=== PATIENT | female | born 1995 | race Caucasian/White ===

== ENCOUNTER 2018-10-30 16:47 | Emergency (ER) | payer SELFPAY ==
--- NOTE | 2018-10-30 17:01 | Emergency Department Report ---
Chief Complaint: Nausea/Vomiting/Diarrhea Stated Complaint: 7WKS /VOMITTING Time Seen by Provider: 10/30/18 16:58 - HPI History of Present Illness: pt is currently 7 weeks says she has N/V that began a week ago no vaginal discharge no urinary sx /P:1/A:0 states she had similar sx with her first no vaginal bleeding LNMP September 08, 2018 states she had confirmed at a clinic no drinker no drug use no smoking MSE screening note: Focused history and physical exam performed. Due to findings the following was ordered: UA, CBC, BMP ED Disposition for MSE Condition: Stable
[2018-10-30 17:24] LABS: Basophils % (Auto) 0.3 % (0.0-1.8); Eosinophils # (Auto) 0.1 K/mm3 (0.0-0.4); Eosinophils % (Auto) 0.9 % (0.0-4.3); Hematocrit 39.5 % (30.3-42.9); Hemoglobin 13.7 gm/dl (10.1-14.3); Lymphocytes # (Auto) 2.2 K/mm3 (1.2-5.4); Lymphocytes % (Auto) 19.1 % (13.4-35.0); Mean Corpuscular HGB Conc 35 % (30-34); Mean Corpuscular Volume 87 fl (79-97); Monocytes # (Auto) 0.8 K/mm3 (0.0-0.8); Monocytes % (Auto) 6.8 % (0.0-7.3); Platelet Count 256 K/mm3 (140-440); Red Blood Count 4.55 M/mm3 (3.65-5.03); Red Cell Distribution Width 12.3 % (13.2-15.2)
[2018-10-30 18:29] LABS: BUN/Creatinine Ratio 18; Blood Urea Nitrogen 9 mg/dL (7-17); Calcium 9.6 mg/dL (8.4-10.2); Hemolysis Index 109
[2018-10-30 18:43] LABS: Bacteria,Urine 1+ /HPF (Negative); Bilirubin,Urine NEG (Negative); Blood,Urine NEG (Negative); Color,Urine Yellow (Yellow); Mucus,Urine 3+ /HPF; Protein,Urine <15 mg/dL mg/dL (Negative)
[2018-10-30] MEDS ORDERED: ZOFRAN IV ONE ×2 (18:57→21:13)
[2018-10-30] MEDS ORDERED: NACL 0.9% 1000 ML 1,000 ML IV ONE ×2 (18:57→21:13)
[2018-10-30] MEDS ORDERED: KEFLEX PO ONE (18:57)
--- NOTE | 2018-10-30 18:59 | Emergency Department Report ---
ED N/V/D HPI - General Chief complaint: Nausea/Vomiting/Diarrhea Stated complaint: 7WKS /VOMITTING Time Seen by Provider: 10/30/18 16:58 Source: patient, family Mode of arrival: Ambulatory Limitations: No Limitations - History of Present Illness Initial comments: This is a 22-year-old female here with her significant other reports that she is having hyperemesis and she is 7 weeks . She is taking vitamins but has not signed up to see [facility] as yet. She reports nausea which is usual with her . Denies any fever or chills. Denies any abdominal pain or back pain. Denies any urinary burning, frequency or urgency. Denies vaginal bleeding or discharge. Denies any medical problem. Pain is 0/10. MD complaint: nausea, vomiting Onset/Timin -: days(s) Description of Vomiting: food contents Description of Diarrhea: other (no diarrhea) Associated Abdominal Pain: No Pain Scale: 0 Context: other (patient is at 7 weeks) Associated Symptoms: nausea/vomiting. denies: myalgias, chest pain, cough, diaphoresis, fever/chills, headaches, loss of appetite, malaise, rash, dysuria, shortness of breath, syncope, weakness - Related Data Previous Rx's Medication Instructions Recorded Last Taken Type Ondansetron [Zofran Odt] 4 mg PO Q8HR PRN #12 tab.rapdis 10/30/18 Unknown Rx cephALEXin [Keflex] 500 mg PO Q12HR 7 Days #14 cap 10/30/18 Unknown Rx Allergies Allergy/AdvReac Type Severity Reaction Status Date / Time No Known Allergies Allergy Unverified 10/30/18 16:50 ED Review of Systems ROS: Stated complaint: 7WKS /VOMITTING Other details as noted in HPI Constitutional: denies: chills, fever ENT: denies: throat pain, congestion Respiratory: denies: cough, shortness of breath, wheezing (when he she will order) Cardiovascular: denies: chest pain, palpitations, edema, syncope Gastrointestinal: nausea. denies: abdominal pain Genitourinary: denies: urgency, dysuria, frequency, hematuria, discharge, dyspareunia Musculoskeletal: denies: back pain, joint swelling, arthralgia, myalgia Skin: denies: rash Neurological: denies: headache, abnormal gait, vertigo ED Past Medical Hx - Past Medical History Previous Medical History?: No - Surgical History Past Surgical History?: No - Family History Family history: hypertension - Social History Smoking Status: Never Smoker Substance Use Type: None - Medications Home Medications: Home Medications Medication Instructions Recorded Confirmed Last Taken Type Ondansetron [Zofran Odt] 4 mg PO Q8HR PRN #12 tab.rapdis 10/30/18 Unknown Rx cephALEXin [Keflex] 500 mg PO Q12HR 7 Days #14 cap 10/30/18 Unknown Rx ED Physical Exam - General Limitations: No Limitations General appearance: alert, in no apparent distress - Head Head exam: Present: atraumatic - Eye Eye exam: Present: normal appearance, PERRL, EOMI Pupils: Present: normal accommodation - ENT ENT exam: Present: normal exam, normal orophraynx, mucous membranes moist - Neck Neck exam: Present: normal inspection, full ROM. Absent: tenderness, lymphadenopathy - Respiratory Respiratory exam: Present: normal lung sounds bilaterally. Absent: respiratory distress, chest wall tenderness - Cardiovascular Cardiovascular Exam: Present: regular rate, normal rhythm, tachycardia, normal heart sounds - GI/Abdominal GI/Abdominal exam: Present: soft, normal bowel sounds. Absent: distended, tenderness, guarding, rebound, rigid, organomegaly, mass, bruit - Extremities Exam Extremities exam: Present: normal inspection, full ROM, normal capillary refill, other (No cce. + 2 pulses in all extremities, no neurovascular compromise). Absent: tenderness, pedal edema, joint swelling, calf tenderness - Back Exam Back exam: Present: normal inspection, full ROM, other (ambulates without any d ifficulties). Absent: tenderness, CVA tenderness (R), CVA tenderness (L), muscle spasm, paraspinal tenderness, vertebral tenderness, rash noted - Neurological Exam Neurological exam: Present: alert, oriented X3, normal gait - Psychiatric Psychiatric exam: Present: normal affect, normal mood - Skin Skin exam: Present: warm, dry, intact, normal color. Absent: rash ED Course Vital Signs 10/30/18 16:58 Temperature 98.1 F Pulse Rate 108 H Respiratory 18 Rate Blood Pressure 107/78 O2 Sat by Pulse 99 Oximetry Vital Signs 10/30/18 10/30/18 16:58 22:15 Temperature 98.1 F Pulse Rate 108 H 78 Respiratory 18 Rate Blood Pressure 107/78 O2 Sat by Pulse 99 Oximetry - Reevaluation(s) Reevaluation #1: 10/30/18 21:14 Patient given 1 L of normal saline, Zofran 4 mg IV and started on Keflex to treat urinary tract infection. Upon reevaluation ,she said that she is feeling better without any nausea but she has some acid which she usually has. Patient able to tolerate oral liquids and noted drinking soda in room. She denies any abdominal or back pain. ED Medical Decision Making - Lab Data Result diagrams: 10/30/18 17:07 10/30/18 17:07 Lab Results 10/30/18 10/30/18 10/30/18 Range/Units 17: 17:07 17:35 WBC 11.8 H (4.5-11.0) K/mm3 RBC 4.55 (3.65-5.03) M/mm3 Hgb 13.7 (10.1-14.3) gm/dl Hct 39.5 (30.3-42.9) % MCV 87 (79-97) fl MCH 30 (28-32) pg MCHC 35 H (30-34) % RDW 12.3 L (13.2-15.2) % Plt Count 256 (140-440) K/mm3 Lymph % (Auto) 19.1 (13.4-35.0) % [place] % (Auto) 6.8 (0.0-7.3) % Eos % (Auto) 0.9 (0.0-4.3) % Baso % (Auto) 0.3 (0.0-1.8) % Lymph # 2.2 (1.2-5.4) K/mm3 [place] # 0.8 (0.0-0.8) K/mm3 Eos # 0.1 (0.0-0.4) K/mm3 Baso # 0.0 (0.0-0.1) K/mm3 Seg Neutrophils % 72.9 H (40.0-70.0) % Seg Neutrophils # 8.6 H (1.8-7.7) K/mm3 Sodium 138 (137-145) mmol/L Potassium 4.0 (3.6-5.0) mmol/L Chloride 101.7 (98-107) mmol/L Carbon Dioxide 23 (22-30) mmol/L Anion Gap 17 mmol/L BUN 9 (7-17) mg/dL Creatinine 0.5 L (0.7-1.2) mg/dL Estimated GFR > 60 ml/min BUN/Creatinine Ratio 18 % Glucose 94 (65-100) mg/dL Calcium 9.6 (8.4-10.2) mg/dL Urine Color Yellow (Yellow) Urine Turbidity Cloudy (Clear) Urine pH 5.0 (5.0-7.0) Ur Specific [place] 1.024 (1.003-1.030) Urine Protein <15 mg/dl (Negative) mg/dL Urine Glucose (UA) Neg (Negative) mg/dL Urine Ketones 20 (Negative) mg/dL Urine Blood Neg (Negative) Urine Nitrite Neg (Negative) Urine Bilirubin Neg (Negative) Urine Urobilinogen 4.0 (<2.0) mg/dL Ur Leukocyte Esterase Lg (Negative) Urine WBC (Auto) 21.0 H (0.0-6.0) /HPF Urine RBC (Auto) 7.0 (0.0-6.0) /HPF U Epithel Cells (Auto) 27.0 H (0-13.0) /HPF Urine Bacteria (Auto) 1+ (Negative) /HPF Urine Mucus 3+ /HPF - Medical Decision Making This is a 22-year-old female here reports that she is having in nausea with vomiting over the last couple days. She reports that this is on and off. She is not having any vaginal bleeding, abdominal or back pain or urinary burning frequency or urgency. She is here to be evaluated Labs: CBC and CMP stable except mild elevation in white count with mild shift into the left and and urinalysis positive for urinary tract infection and also positive ketone.. Patient treated with 1 L of normal saline IV, Zofran 4 mg IV and she was giving Keflex 500 mg by mouth to start treatment for urinary tract infection. Up and reevaluation, she is feeling a lot better. Assessment/plan 1Acute cystitis-year and has some contamination but she has a urinary tract infection so unable to send for culture. Started on Keflex and will send home on Keflex to treat UTI. CBC mildly elevated with minimal shift into the left could be from vomiting or from urinary tract infection. Her urinalysis shows ketones of 20 which reflects mild dehydration 2: Nausea and vomiting in -better and Zofran and will send home on Zofran. Patient received 1 L of normal saline and she is able to tolerate oral liquids and was seen drinking in facility in room without any problems. I told her that she needs to drink water or Gatorade and not to drink soda as this could make acid in her stomach worse. Patient remained stable throughout ED course. I explained diagnosis, medication and treatment plan along with laboratory results. They voiced understanding. She is much better without any nausea at present. She is not having any pain. I discussed her that she needs to make an appointment [facility] which I will refer her to call tomorrow to schedule patient appointment for care. She is already started vitamin. Discharged home with her significant other with prescription for Zofran and Keflex. - Differential Diagnosis pyelonephritis, gastroenteritis, , urinary tract infection Critical care attestation.: If time is entered above; I have spent that time in minutes in the direct care of this critically ill patient, excluding procedure time. ED Disposition Clinical Impression: Mild dehydration, UTI (urinary tract infection) in in first trimester, Nausea and vomiting during Disposition: DC-01 TO HOME OR SELFCARE Is pt being admited?: No Does the pt Need Aspirin: No Condition: Stable Instructions: Acute Nausea and Vomiting (ED), Morning Sickness (ED), Dehydration (ED), Urinary Tract Infection in Women (ED) Additional Instructions: Please call [facility] office that I recommended due to the scheduled appointment for care. Continue to take vitamin but ensure you take this with food as it can cause nausea Please refrain from drinking soda as this has a lot of acid and he can cause stomach upset Take Keflex for urinary tract infection Take Zofran for nausea and vomiting U were mildly dehydrated today and will need to increase fluid intake to 2-3 L daily If your condition worsens, please return to the emergency room. Prescriptions: cephALEXin [Keflex] 500 mg PO Q12HR 7 Days #14 cap Ondansetron [Zofran Odt] 4 mg PO Q8HR PRN #12 tab.rapdis PRN Reason: Nausea And Vomiting Referrals: [facility] MD TIERRA [Primary Care Provider] - 10/31/18 DEBBIE SANDOVAL MD [Staff Physician] - 3-5 Days Forms: Work/School Release Form(ED), Accompanied Note
[2018-10-30 22:34] VITALS: BP 104/74
== END 2018-10-30 22:31 | disposition home or self-care (01) ==
LOC: ED 16:47
DX: O23.41 Unspecified infection of urinary tract in pregnancy, first trimester (principal); Z3A.01 Less than 8 weeks gestation of pregnancy; E86.0 Dehydration
CPT/HCPCS: 36415; 80048; 81001; 85025; 96361; 96374; 99283; J2405; J7030

== ENCOUNTER 2018-11-15 15:24 | Emergency (ER) | payer OTHER ==
--- NOTE | 2018-11-15 15:33 | Emergency Department Report ---
Chief Complaint: Nausea/Vomiting/Diarrhea Stated Complaint: NAUSEA/VOMITING/DIZZY Time Seen by Provider: 11/15/18 15:31 - HPI History of Present Illness: This is a 22 y.o. F. that presents to the ER with nausea and vomiting. Patient reports she is 10-12 weeks . She is not followed by [facility]. LMP 09/05/18 Patient states she was here a 2 weeks ago with similar symptoms and the medication prescribed is not working. - Exam Vital Signs: Vital Signs 11/15/18 15:32 Temperature 99.3 F Pulse Rate 126 H Respiratory 16 Rate Blood Pressure 108/80 O2 Sat by Pulse 98 Oximetry MSE screening note: Focused history and physical exam performed. Due to findings the following was ordered: This initial assessment/diagnostic orders/clinical plan/treatment(s) is/are subject to change based on patient's health status, clinical progression and re- assessment by fellow clinical providers in the ED. Further treatment and workup at subsequent clinical providers discretion. Patient/guardians urged not to elope from the ED as their condition may be serious if not clinically assessed and managed. Initial orders include: 1- Patient sent to [facility] for further evaluation and treatment 2- Labs ED Disposition for MSE Condition: Stable
[2018-11-15 16:10] LABS: Bacteria,Urine 1+ /HPF (Negative); Bilirubin,Urine NEG (Negative); Blood,Urine NEG (Negative); Color,Urine Amber (Yellow); Mucus,Urine 3+ /HPF
[2018-11-15 16:22] LABS: Hematocrit 40.8 % (30.3-42.9); Hemoglobin 13.7 gm/dl (10.1-14.3); Mean Corpuscular HGB Conc 34 % (30-34); Mean Corpuscular Volume 88 fl (79-97); Platelet Count 225 K/mm3 (140-440); Red Blood Count 4.62 M/mm3 (3.65-5.03); Red Cell Distribution Width 12.3 % (13.2-15.2)
[2018-11-15 16:44] LABS: BUN/Creatinine Ratio 18; Blood Urea Nitrogen 7 mg/dL (7-17); Calcium 9.3 mg/dL (8.4-10.2); Hemolysis Index 88
[2018-11-15] MEDS ORDERED: NACL 0.9% 1000 ML 1,000 ML IV ONE (16:45)
--- NOTE | 2018-11-15 17:59 | Emergency Department Report ---
ED HPI - General Chief complaint: Nausea/Vomiting/Diarrhea Stated complaint: NAUSEA/VOMITING/DIZZY Time Seen by Provider: 11/15/18 15:31 Source: patient Mode of arrival: Ambulatory Limitations: No Limitations - History of Present Illness Initial comments: Patient is a 22-year-old female who comes to the ER complaining of nausea and vomiting associated with her . She denies any vaginal bleeding. She is not having pain. Patient's temperature on arrival was 99.3. She has no CVA tenderness. No vaginal discharge. Patient has not seen an [facility] RN because of her Medicaid. 2 para 1. Patient is ambulatory and nontoxic on exam. -: Gradual, days(s) Consistency: intermittent Improves with: none Worsens with: none Associated symptoms: nausea/vomiting, headache. denies: vaginal bleeding, vaginal discharge, abdominal pain, dysuria, vision changes, malaise, dysparuenia, rash, seizure, shortness of breath, syncope, weakness Vaginal bleeding: none :: Yes OB History - Current : no complications OB History - Previous Pregnancies: no complications Pre-angélica care: none - Related Data : 2 Para: 1 Previous Rx's Medication Instructions Recorded Last Taken Type Amoxicillin [Trimox CAP] 500 mg PO BID #14 capsule 11/15/18 Unknown Rx Ondansetron [Zofran Odt] 4 mg PO Q8HR PRN #10 tab.rapdis 11/15/18 Unknown Rx Allergies Allergy/AdvReac Type Severity Reaction Status Date / Time No Known Allergies Allergy Unverified 10/30/18 16:50 ED Review of Systems ROS: Stated complaint: NAUSEA/VOMITING/DIZZY Other details as noted in HPI Comment: All other systems reviewed and negative ED Past Medical Hx - Past Medical History Previous Medical History?: No - Surgical History Past Surgical History?: No - Family History Family history: no significant - Social History Smoking Status: Never Smoker Substance Use Type: None - Medications Home Medications: Home Medications Medication Instructions Recorded Confirmed Last Taken Type Amoxicillin [Trimox CAP] 500 mg PO BID #14 capsule 11/15/18 Unknown Rx Ondansetron [Zofran Odt] 4 mg PO Q8HR PRN #10 tab.rapdis 11/15/18 Unknown Rx ED Physical Exam - General Limitations: No Limitations General appearance: alert - Eye Eye exam: Present: normal appearance - ENT ENT exam: Present: mucous membranes moist - Neck Neck exam: Present: normal inspection - Respiratory Respiratory exam: Present: normal lung sounds bilaterally - Cardiovascular Cardiovascular Exam: Present: regular rate - GI/Abdominal GI/Abdominal exam: Present: soft, normal bowel sounds. Absent: tenderness - Rectal Rectal exam: Present: deferred - Extremities Exam Extremities exam: Present: normal inspection, full ROM - Back Exam Back exam: Present: normal inspection, full ROM - Neurological Exam Neurological exam: Present: alert, oriented X3 - Psychiatric Psychiatric exam: Present: normal affect, normal mood - Skin Skin exam: Present: warm, dry ED Course Vital Signs 11/15/18 11/15/18 15:32 19:30 Temperature 99.3 F 98.3 F Pulse Rate 126 H 106 H Respiratory 16 16 Rate Blood Pressure 108/80 Blood Pressure 105/74 [Left] O2 Sat by Pulse 98 98 Oximetry ED Medical Decision Making - Lab Data Result diagrams: 11/15/18 16:02 11/15/18 16:02 - Medical Decision Making Vital Signs 11/15/18 15:32 Temperature 99.3 F Pulse Rate 126 H Respiratory 16 Rate Blood Pressure 108/80 O2 Sat by Pulse 98 Oximetry Lab Results 11/15/18 11/15/18 11/15/18 Range/Units 15:47 16:02 16:02 WBC 11.6 H (4.5-11.0) K/mm3 RBC 4.62 (3.65-5.03) M/mm3 Hgb 13.7 (10.1-14.3) gm/dl Hct 40.8 (30.3-42.9) % MCV 88 (79-97) fl MCH 30 (28-32) pg MCHC 34 (30-34) % RDW 12.3 L (13.2-15.2) % Plt Count 225 (140-440) K/mm3 Sodium 137 (137-145) mmol/L Potassium 4.0 (3.6-5.0) mmol/L Chloride 99.0 (98-107) mmol/L Carbon Dioxide 22 (22-30) mmol/L Anion Gap 20 mmol/L BUN 7 (7-17) mg/dL Creatinine 0.4 L (0.7-1.2) mg/dL Estimated GFR > 60 ml/min BUN/Creatinine Ratio 18 % Glucose 114 H (65-100) mg/dL Calcium 9.3 (8.4-10.2) mg/dL Urine Color [place] (Yellow) Urine Turbidity Slightly-cloudy (Clear) Urine pH 6.0 (5.0-7.0) Ur Specific [place] 1.029 (1.003-1.030) Urine Protein 30 mg/dl (Negative) mg/dL Urine Glucose (UA) Neg (Negative) mg/dL Urine Ketones 80 (Negative) mg/dL Urine Blood Neg (Negative) Urine Nitrite Neg (Negative) Urine Bilirubin Neg (Negative) Urine Urobilinogen 4.0 (<2.0) mg/dL Ur Leukocyte Esterase Lg (Negative) Urine WBC (Auto) 22.0 H (0.0-6.0) /HPF Urine RBC (Auto) 7.0 (0.0-6.0) /HPF U Epithel Cells (Auto) 6.0 (0-13.0) /HPF Urine Bacteria (Auto) 1+ (Negative) /HPF Urine Mucus 3+ /HPF n/v of lmp 3-18 has not seen obgyn due to medicaid IV with fluids zofran medicated for UTI taking po on dc will follow up with obgyn Critical care attestation.: If time is entered above; I have spent that time in minutes in the direct care of this critically ill patient, excluding procedure time. ED Disposition Clinical Impression: , UTI (urinary tract infection) Disposition: DC-01 TO HOME OR SELFCARE Is pt being admited?: No Does the pt Need Aspirin: No Condition: Stable Instructions: Hyperemesis Gravidarum (ED) Additional Instructions: DIET TOLERATED MEDS ORDERED TODAY IN ER FOLLOW INSTRUCTIONS ON THE BOTTLE FOLLOW UP PCP WITHIN 48 HOURS TO ENSURE YOU ARE GETTING BETTER ACTIVITY TOLERATED MOTRIN OR TYLENOL FOR PAIN OR FEVER RETURN TO THE ER FOR WORSENING SYMPTOMS NOT RELIEVED BY YOUR MEDICATIONS. Prescriptions: Amoxicillin [Trimox CAP] 500 mg PO BID #14 capsule Ondansetron [Zofran Odt] 4 mg PO Q8HR PRN #10 tab.rapdis PRN Reason: Vomiting Referrals: [facility] MD TIERRA [Primary Care Provider] - 3-5 Days DEBBIE SANDOVAL MD [Staff Physician] - 3-5 Days Time of Disposition: 18:49
[2018-11-15] MEDS ORDERED: ZOFRAN IV ONE (18:49)
[2018-11-15] MEDS ORDERED: TYLENOL PO ONE (18:50)
[2018-11-15] MEDS ORDERED: ROCEPHIN/NS 1 GM/50 ML 1 GM/50 ML BAG IV ONE (18:51)
[2018-11-15] MEDS ORDERED: ZOFRAN ODT PO ONE (19:27)
[2018-11-15] MEDS ORDERED: ZOFRAN ODT ONE (19:28)
[2018-11-15 19:31] VITALS: BP 105/74
== END 2018-11-15 20:05 | disposition home or self-care (01) ==
LOC: ED 15:24
DX: O16.1 Unspecified maternal hypertension, first trimester (principal); O21.9 Vomiting of pregnancy, unspecified; Z3A.10 10 weeks gestation of pregnancy
CPT/HCPCS: 36415; 80048; 81001; 85027; 96361; 96365; 96375; 99283; J0696; J2405; J7030; Q0162

== ENCOUNTER 2020-05-14 18:40 | Emergency (ER) | payer MEDICAID ==
[2020-05-14 18:54] VITALS: BP 128/87
--- NOTE | 2020-05-14 19:37 | Cat Scan Report ---
CT MAXILLOFACIAL WITHOUT CONTRAST INDICATION / CLINICAL INFORMATION: nasal pain and left eye pain after injury. TECHNIQUE: All CT scans at this location are performed using CT dose reduction for ALARA by means of automated e xposure control. COMPARISON: None available. FINDINGS: FACIAL BONES: There is slightly displace and age related fracture involving the left at nasal bone at . Additionally, there is mild adjacent soft tissue edema which extends along the left medial canthus at. Otherwise, the facial bones, including the orbital escalante, sinuses and zygomatic arches appear int act. PARANASAL SINUSES: There is mild mucosal thickening along the inferior right maxillary sinus at. Ther e is minimal mucosal thickening within the ethmoid air cells. The nasal septum is essentially midline . ORBITS: The optic globes demonstrate appropriate size and configuration. No significant post septal i nflammatory changes are identified. VISUALIZED INTRACRANIAL STRUCTURES: No significant abnormality. ADDITIONAL FINDINGS: There are multiple lymph nodes involving visualized upper neck which are nonspec ific though likely reactive in this patient. IMPRESSION: 1. There is a slightly displaced and angulated fracture involving the left nasal bone with mild adj acent edema. Signer Name: Bony Cabrera MD Signed: 05/14/2020 7:33 PM Workstation Name: [id number]
[2020-05-14] MEDS ORDERED: HYDROcodone/ACETAMINOPHEN 5-325 MG TAB PO ONE (19:40)
--- NOTE | 2020-05-14 20:16 | XRay Report ---
NASAL BONE 3 VIEWS INDICATION / CLINICAL INFORMATION: nasal trauma. COMPARISON: None available. FINDINGS: Mildly displaced fracture left nasal bone. No additional acute findings. Signer Name: Alfredo Calhoun MD Signed: 05/14/2020 8:11 PM Workstation Name: [id number]
--- NOTE | 2020-05-14 20:34 | Emergency Department Report ---
ED General Adult HPI - General Chief complaint: Head Injury Stated complaint: NOSE INJURY Time Seen by Provider: 05/14/20 18:56 Source: patient Mode of arrival: Ambulatory Limitations: Language Barrier - History of Present Illness Initial comments: Pt is a 24 y/o female involved in basketball accident , was elbowed by other place to bridge of nose. there was no loc, no nose bleed, pt drove self to home , now with headache, nose pain and facial swelling , no obvious deformity, no loss of vision , no headache, no dizziness, no light headedness, no neck pain swelling or deformity. pain is 3/10 aching , swelling, no sob , no difficulty breathing, no n/v. Severity scale (0 -10): 3 - Related Data Previous Rx's Medication Instructions Recorded Last Taken Type Amoxicillin [Trimox CAP] 500 mg PO BID #14 capsule 11/15/18 Unknown Rx Ondansetron [Zofran Odt] 4 mg PO Q8HR PRN #10 tab.rapdis 11/15/18 Unknown Rx Amoxicillin/Potassium Clav 1 each PO BID 10 Days #20 tablet 05/14/20 Unknown Rx [Augmentin 875-125 Tablet] HYDROcodone/APAP 5-325 [[place] 1 each PO Q6HR PRN #12 tablet 05/14/20 Unknown Rx 5-325 mg TAB] Oxymetazoline 0.05% [Vicks Sinex] 2 spray NS BID 3 Days #1 bottle 05/14/20 Unknown Rx Allergies Allergy/AdvReac Type Severity Reaction Status Date / Time No Known Allergies Allergy Unverified 10/30/18 16:50 ED Review of Systems ROS: Stated complaint: NOSE INJURY Other details as noted in HPI Constitutional: denies: chills, fever Eyes: denies: eye pain, eye discharge, vision change ENT: other (facial swelling ). denies: ear pain, throat pain, epistaxis, congestion Respiratory: denies: cough, shortness of breath, wheezing Cardiovascular: denies: chest pain, palpitations Endocrine: no symptoms reported Gastrointestinal: denies: abdominal pain, nausea, diarrhea Genitourinary: denies: urgency, dysuria, discharge Musculoskeletal: denies: back pain, joint swelling, arthralgia Skin: denies: rash, lesions Neurological: denies: headache, weakness, paresthesias Psychiatric: denies: anxiety, depression Hematological/Lymphatic: denies: easy bleeding, easy bruising ED Past Medical Hx - Past Medical History Previous Medical History?: No - Surgical History Past Surgical History?: No - Social History Smoking Status: Never Smoker Substance Use Type: None - Medications Home Medications: Home Medications Medication Instructions Recorded Confirmed Last Taken Type Amoxicillin [Trimox CAP] 500 mg PO BID #14 capsule 11/15/18 Unknown Rx Ondansetron [Zofran Odt] 4 mg PO Q8HR PRN #10 tab.rapdis 11/15/18 Unknown Rx Amoxicillin/Potassium Clav 1 each PO BID 10 Days #20 tablet 05/14/20 Unknown Rx [Augmentin 875-125 Tablet] HYDROcodone/APAP 5-325 [[place] 1 each PO Q6HR PRN #12 tablet 05/14/20 Unknown Rx 5-325 mg TAB] Oxymetazoline 0.05% [Vicks Sinex] 2 spray NS BID 3 Days #1 bottle 05/14/20 Unknown Rx ED Physical Exam - General Limitations: Language Barrier General appearance: alert, in no apparent distress - Head Head exam: Present: atraumatic, normocephalic - Expanded Head Exam Expanded Head exam: Present: abrasion, contusion. Absent: laceration, racoon eyes, pandya's sign, general tenderness, CSF rhinorrhea, CSF otorrhea 1 - swelling ecchymosis, no deformity, no crepitus, no expistaxis , nares patent, mild sinus pain to palpation , - Eye Eye exam: Present: normal appearance, EOMI Pupils: Present: normal accommodation - ENT ENT exam: Present: mucous membranes moist, TM's normal bilaterally, normal external ear exam - Expanded ENT Exam Expanded Ear exam: Present: normal external inspection Mouth exam: Absent: trismus Teeth exam: Present: normal inspection Throat exam: Positive: normal inspection, other (uvula midline no swelling exudate or lesions). Negative: tonsillar erythema, tonsillomegaly, tonsillar exudate, R peritonsillar mass, L peritonsillar mass - Neck Neck exam: Present: normal inspection, full ROM. Absent: tenderness - Expanded Neck Exam Expanded Neck exam: Absent: tenderness (no posterior vertebral point tenderness, no stepoff , no crepitus, no deformity, rom intact and unrestricted to all burks.), midline deformity, anterior neck swelling, tracheal deviation - Respiratory Respiratory exam: Present: normal lung sounds bilaterally. Absent: respiratory distress, wheezes, stridor, chest wall tenderness - Cardiovascular Cardiovascular Exam: Present: regular rate, normal rhythm, normal heart sounds. Absent: systolic murmur, diastolic murmur, rubs, gallop - GI/Abdominal GI/Abdominal exam: Present: soft, normal bowel sounds. Absent: distended, tenderness, guarding, rebound, bruit, hernia - Rectal Rectal exam: Present: deferred - Extremities Exam Extremities exam: Present: normal inspection, full ROM, normal capillary refill. Absent: tenderness - Back Exam Back exam: Present: normal inspection, full ROM. Absent: tenderness, CVA tenderness (R), CVA tenderness (L), vertebral tenderness, rash noted - Neurological Exam Neurological exam: Present: alert, oriented X3, CN II-XII intact, normal gait. Absent: motor sensory deficit, reflexes normal - Expanded Neurological Exam Expanded Patient oriented to: Present: person, place, time Speech: Present: fluid speech Cranial nerves: EOM's Intact: Normal, Gag Reflex: Normal, Tongue Deviation: Normal, Nystagmus: Normal, Facial Sensation: Normal Motor strength exam: RUE: 5, LUE: 5, RLE: 5, LLE: 5 Best Eye Response ([place]): (4) open spontaneously Best Motor Response ([place]): (6) obeys commands Best Verbal Response ([place]): (5) oriented [place] Total: 15 - Psychiatric Psychiatric exam: Present: normal affect, normal mood - Skin Skin exam: Present: warm, dry, intact, normal color. Absent: rash ED Course Vital Signs 05/14/20 18:46 Temperature 98.1 F Pulse Rate 97 H Respiratory 16 Rate Blood Pressure 128/87 O2 Sat by Pulse 100 Oximetry ED Medical Decision Making - Radiology Data Radiology results: report reviewed, image reviewed Findings Reporting MD: Alfredo Calhoun Dictation Time: May 14, 2020 19:11 Director Of District Office: Not available Foreman/Project Manager Date: NASAL BONE 3 VIEWS INDICATION / CLINICAL INFORMATION: nasal trauma. COMPARISON: None available. FINDINGS: Mildly displaced fracture left nasal bone. No additional acute findings. Signer Name: Alfredo Calhoun MD Signed: 05/14/2020 7:11 PM Workstation Name: [id number] Findings Reporting MD: Bony Cabrera Dictation Time: May 14, 2020 18:33 Director Of District Office: Not available Foreman/Project Manager Date: CT MAXILLOFACIAL WITHOUT CONTRAST INDICATION / CLINICAL INFORMATION: nasal pain and left eye pain after injury. TECHNIQUE: All CT scans at this location are performed using CT dose reduction for ALARA by means of automated exposure control. COMPARISON: None available. FINDINGS: FACIAL BONES: There is slightly displace and age related fracture involving the left at nasal bone at. Additionally, there is mild adjacent soft tissue edema which extends along the left medial canthus at. Otherwise, the facial bones, including the orbital escalante, sinuses and zygomatic arches appear intact. PARANASAL SINUSES: There is mild mucosal thickening along the inferior right maxillary sinus at. There is minimal mucosal thickening within the ethmoid air cells. The nasal septum is essentially midline. ORBITS: The optic globes demonstrate appropriate size and configuration. No significant post septal inflammatory changes are identified. VISUALIZED INTRACRANIAL STRUCTURES: No significant abnormality. ADDITIONAL FINDINGS: There are multiple lymph nodes involving visualized upper neck which are nonspecific though likely reactive in this patient. IMPRESSION: 1. There is a slightly displaced and angulated fracture involving the left nasal bone with mild adjacent edema. Signer Name: Bony Cabrera MD Signed: 05/14/2020 6:33 PM Workstation Name: [id number] - Medical Decision Making ct : mild dipslaced nasal bone fracture, no periorbital fracture, air way is patent, no neuro deficits, no neck pain, plan: rx, abx, afrin, follow ENT in 2- 3 days, Critical care attestation.: If time is entered above; I have spent that time in minutes in the direct care of this critically ill patient, excluding procedure time. ED Disposition Clinical Impression: Nasal bone fracture Qualifiers: Encounter type: initial encounter Fracture type: closed Qualified Code(s): S02.2XXA - Fracture of nasal bones, initial encounter for closed fracture Disposition: - TO HOME OR SELFCARE Is pt being admited?: No Does the pt Need Aspirin: No Condition: Stable Instructions: Nasal Fracture, [id number] Prescriptions: Amoxicillin/Potassium Clav [Augmentin 875-125 Tablet] 1 each PO BID 10 Days #20 tablet HYDROcodone/APAP 5-325 [[place] 5-325 mg TAB] 1 each PO Q6HR PRN #12 tablet PRN Reason: Pain Oxymetazoline 0.05% [Vicks Sinex] 2 spray NS BID 3 Days #1 bottle Referrals: CHARLIE RYAN MD [Staff Physician] - 3-5 Days Forms: Work/School Release Form(ED) Print Language: IVORIAN
== END 2020-05-14 20:45 | disposition home or self-care (01) ==
LOC: ED 18:40
DX: S02.2XXA Fracture of nasal bones, initial encounter for closed fracture (principal); Z79.899 Other long term (current) drug therapy; X58.XXXA Exposure to other specified factors, initial encounter; Y93.67 Activity, basketball; Y92.89 Other specified places as the place of occurrence of the external cause; Y99.8 Other external cause status
CPT/HCPCS: 70160; 70486

== ENCOUNTER 2021-12-24 17:40 | Emergency (ER) | payer MEDICAID ==
[2021-12-25 05:23] VITALS: BP 135/91
--- NOTE | 2021-12-25 05:58 | Emergency Department Report ---
ED General Adult HPI - General Chief complaint: Wound/Laceration Stated complaint: CUT ON HAND Time Seen by Provider: 12/25/21 05:13 Source: patient Mode of arrival: Ambulatory Limitations: No Limitations - History of Present Illness Initial comments: Patient 26-year-old female who presents for laceration to right posterior hand at base of pinky finger. Patient states he accidentally cut it while washing dishes last night. Bleeding was controlled by direct pressure self applied at home. There is no nerve muscle or tendon damage range of motion remains intact there is no deformity. Tetanus is up-to-date. Patient denies other complaint incident happened approximately 9 hours ago - Related Data Previous Rx's Medication Instructions Recorded Last Taken Type Amoxicillin [Trimox CAP] 500 mg PO BID #14 capsule 11/15/18 Unknown Rx Ondansetron [Zofran Odt] 4 mg PO Q8HR PRN #10 tab.rapdis 11/15/18 Unknown Rx Amoxicillin/Potassium Clav 1 each PO BID 10 Days #20 tablet 05/14/20 Unknown Rx [Augmentin 875-125 Tablet] HYDROcodone/APAP 5-325 [[place] 1 each PO Q6HR PRN #12 tablet 05/14/20 Unknown Rx 5-325 mg TAB] Oxymetazoline 0.05% [Vicks Sinex] 2 spray NS BID 3 Days #1 bottle 05/14/20 Unknown Rx cephALEXin [Keflex] 500 mg PO Q8HR 7 Days #21 cap 12/25/21 Unknown Rx traMADoL [Ultram] 50 mg PO Q6HR PRN #12 tablet 12/25/21 Unknown Rx Allergies Allergy/AdvReac Type Severity Reaction Status Date / Time No Known Allergies Allergy Unverified 10/30/18 16:50 ED Review of Systems ROS: Stated complaint: CUT ON HAND Other details as noted in HPI Constitutional: denies: chills, fever Eyes: denies: eye pain, eye discharge, vision change ENT: denies: ear pain, throat pain Respiratory: denies: cough, shortness of breath, wheezing Cardiovascular: denies: chest pain, palpitations Endocrine: no symptoms reported Gastrointestinal: denies: abdominal pain, nausea, diarrhea Genitourinary: denies: urgency, dysuria, discharge Musculoskeletal: denies: back pain, joint swelling, arthralgia Skin: other (Laceration right posterior hand) Neurological: denies: headache, weakness, paresthesias Psychiatric: denies: anxiety, depression Hematological/Lymphatic: denies: easy bleeding, easy bruising ED Past Medical Hx - Past Medical History Previous Medical History?: No - Surgical History Past Surgical History?: No - Social History Smoking Status: Never Smoker Substance Use Type: None - Medications Home Medications: Home Medications Medication Instructions Recorded Confirmed Last Taken Type Amoxicillin [Trimox CAP] 500 mg PO BID #14 capsule 11/15/18 Unknown Rx Ondansetron [Zofran Odt] 4 mg PO Q8HR PRN #10 tab.rapdis 11/15/18 Unknown Rx Amoxicillin/Potassium Clav 1 each PO BID 10 Days #20 tablet 05/14/20 Unknown Rx [Augmentin 875-125 Tablet] HYDROcodone/APAP 5-325 [[place] 1 each PO Q6HR PRN #12 tablet 05/14/20 Unknown Rx 5-325 mg TAB] Oxymetazoline 0.05% [Vicks Sinex] 2 spray NS BID 3 Days #1 bottle 05/14/20 Unknown Rx cephALEXin [Keflex] 500 mg PO Q8HR 7 Days #21 cap 12/25/21 Unknown Rx traMADoL [Ultram] 50 mg PO Q6HR PRN #12 tablet 12/25/21 Unknown Rx ED Physical Exam - General Limitations: No Limitations General appearance: alert, in no apparent distress - Head Head exam: Present: normocephalic, normal inspection - Eye Eye exam: Present: EOMI Pupils: Present: normal accommodation - ENT ENT exam: Present: mucous membranes moist - Neck Neck exam: Present: normal inspection, full ROM. Absent: tenderness, lymphadenopathy - Respiratory Respiratory exam: Present: normal lung sounds bilaterally. Absent: respiratory distress, wheezes - Cardiovascular Cardiovascular Exam: Present: regular rate, normal rhythm, normal heart sounds. Absent: systolic murmur, diastolic murmur, rubs, gallop - GI/Abdominal GI/Abdominal exam: Present: soft, normal bowel sounds. Absent: distended, tenderness - Rectal Rectal exam: Present: deferred - Extremities Exam Extremities exam: Present: normal inspection, full ROM - Expanded Upper Extremity Exam Right Hand Wrist exam: Present: laceration (2 cm laceration right posterior hand at base of fifth digit nerve muscle or tendon damage). Absent: ecchymosis, erythema, nail avulsion, subungual hematoma Neuro motor exam: Present: wrist extension intact, thumb opposition intact, thumb IP flexion intact, thumb adduction intact, fingers 2-5 abduction intact - Back Exam Back exam: Present: normal inspection, full ROM. Absent: CVA tenderness (R), CVA tenderness (L) - Neurological Exam Neurological exam: Present: alert, oriented X3, CN II-XII intact, reflexes normal. Absent: motor sensory deficit - Expanded Neurological Exam Expanded Patient oriented to: Present: person, place, time Speech: Present: fluid speech Motor strength exam: RUE: 5, LUE: 5 Best Eye Response ([place]): (4) open spontaneously Best Motor Response ([place]): (6) obeys commands Best Verbal Response ([place]): (5) oriented [place] Total: 15 - Psychiatric Psychiatric exam: Present: normal affect, normal mood - Skin Skin exam: Present: warm, dry, normal color, other (Laceration right dorsal hand). Absent: rash ED Course Vital Signs 12/24/21 12/25/21 18:52 05:22 Temperature 98.3 F Pulse Rate 68 89 Respiratory 18 18 Rate Blood Pressure 116/68 135/91 [Left] O2 Sat by Pulse 99 98 Oximetry - Laceration /Wound Repair Right Dorsal Hand Wound Location: upper extremity (Right dorsal hand at base of fifth digit 2 cm laceration no nerve muscle or tendon damage range of motion is intact to direct opposition) Wound Length (cm): 2 Wound's Depth, Shape: superficial Wound Explored: clean Irrigated w/ Saline (ccs): 30 Betadine Prep?: Yes Anesthesia: 1% Lidocaine Volume Anesthetic (ccs): 2 Wound Debrided: None required Suture Size/Type: 3:0, proline (5 running) Number of Sutures: 5 (Running) Layer Closure?: No Progress: Right dorsal hand laceration site cleaned with Betadine solution anesthesia 1% lidocaine x2 cc anesthesia is achieved. Wound irrigated with 30 cc sterile saline, no nerve muscle or tendon damage. Wound manually explored no foreign bodies noted. Wound closed with 3-0 Prolene times 5 sutures running. Edges well approximated all bleeding is controlled sterile dressings applied patient given wound care instructions verbalized understanding of same patient tolerated procedure with minimal distress. CMS remains intact [employer] UND[employer] T is less than 3 seconds bilateral distal pulses remain intact. ED Medical Decision Making - Medical Decision Making Right hand laceration see procedure note above. Patient tolerated met with minimal distress, sterile dressings intact all bleeding controlled patient DC to home with follow-up primary care doctor in 2 days for wound check 7 to 10 days for suture removal. Patient will be DC'd home in stable condition at this time. Critical care attestation.: If time is entered above; I have spent that time in minutes in the direct care of this critically ill patient, excluding procedure time. ED Disposition Clinical Impression: Hand laceration Qualifiers: Encounter type: initial encounter Foreign body presence: without foreign body Laterality: right Qualified Code(s): S61.411A - Laceration without foreign body of right hand, initial encounter Disposition: HOME / SELF CARE / HOMELESS Is pt being admited?: No Does the pt Need Aspirin: No Condition: Stable Instructions: Sutures, Laura, or Adhesive Wound Closure, Wound Care, Adult Additional Instructions: Take medication as prescribed, wound care as directed. Follow-up with your doctor in 2 days for wound check in 7 to 10 days post suture removal. Return to emergency department should symptoms worsen. Prescriptions: cephALEXin [Keflex] 500 mg PO Q8HR 7 Days #21 cap traMADoL [Ultram] 50 mg PO Q6HR PRN #12 tablet PRN Reason: Pain Referrals: SANKET JONES MD [Staff Physician] - 3-5 Days Forms: Work/School Release Form(ED) Time of Disposition: 06:04
== END 2021-12-25 06:38 | disposition home or self-care (01) ==
LOC: ED 17:40
DX: S61.216A Laceration without foreign body of right little finger without damage to nail, initial encounter (principal); W45.8XXA Other foreign body or object entering through skin, initial encounter; Y93.89 Activity, other specified; Y92.89 Other specified places as the place of occurrence of the external cause; Y99.8 Other external cause status
CPT/HCPCS: 99282